=== PATIENT | male | born 1980 | race Asian ===

== ENCOUNTER 2019-06-24 13:29 | Emergency (ER) | payer SELFPAY ==
[~2019-06-24] VITALS: Ht 165.1 cm; Wt 67.0 kg
[2019-06-24 15:45] LABS: BASO % 0 % (0-3); EOS # 0.2 x10^3/uL (0.0-0.7); EOS % 2 % (0-3); HEMATOCRIT 46.6 % (39.0-53.0); HEMOGLOBIN 15.6 g/dL (13.0-17.5); LYMPH % 12 % (24-48); MEAN CORPUSCULAR HEMOGLOBIN 27 pg (25-35); MEAN CORPUSCULAR HGB CONC 34 g/dL (31-37); MEAN CORPUSCULAR VOLUME 82 fL (79-100); MONO # 0.7 x10^3/uL (0.0-1.1); MONO % 9 % (0-9); NEUT # 6.4 x10^3/uL (1.8-7.7); NEUT % 77 % (31-73); PLATELET COUNT 171 x10^3/uL (140-400); RED BLOOD COUNT 5.69 x10^6/uL (4.30-5.70); RED CELL DISTRIBUTION WIDTH 13.6 % (11.5-14.5); WHITE BLOOD COUNT 8.4 x10^3/uL (4.0-11.0)
[2019-06-24 15:47] LABS: BILIRUBIN,URINE NEGATIVE (NEG); CLARITY,URINE CLOUDY; COLOR,URINE YELLOW; NITRITE,URINE NEGATIVE (NEG); PROTEIN,URINE 100 mg/dL (NEG-TRACE); UROBILINOGEN,URINE 0.2 mg/dL (0.2 mg/dL)
[2019-06-24 15:55] LABS: CREATININE 1.4 mg/dL (0.7-1.3); GFR 56.4; POTASSIUM 3.7 mmol/L (3.5-5.1)
[2019-06-24 15:58] LABS: ALBUMIN 3.9 g/dL (3.4-5.0); BACTERIA,URINE FEW /HPF (0-FEW); RBC,URINE TNTC /HPF (0-2); SQUAMOUS EPITHELIAL CELL,UR FEW /LPF; TOTAL BILIRUBIN 0.3 mg/dL (0.2-1.0); TOTAL PROTEIN 7.9 g/dL (6.4-8.2); WBC,URINE TNTC /HPF (0-4)
[2019-06-24] MEDS ORDERED: IV NORMAL SALINE 1000ML BAG 1,000 ML IV ONE (16:00)
[2019-06-24] MEDS ORDERED: KETOROLAC 30 MG/ML VIAL. IV ONE (16:00)
[2019-06-24] MEDS ORDERED: KETOROLAC 15 MG/ML VIAL. ONE (16:21)
[2019-06-24] MEDS ORDERED: KETOROLAC 15 MG/ML VIAL. IV ONE (16:30)
--- NOTE | 2019-06-24 16:40 | RAD ---
Examination: CT of the abdomen pelvis without contrast HISTORY: History of right flank pain, hematuria COMPARISON: 07/23/2012 COMPARISON: None available TECHNIQUE: Axial CT images of the abdomen and pelvis performed without contrast. Coronal and sagittal reformats are performed. Exposure: One or more of the following individualized dose reduction techniques were utilized for this examination: 1. Automated exposure control 2. Adjustment of the mA and/or kV according to patient size 3. Use of iterative reconstruction technique FINDINGS: Mild bibasilar lung airspace opacities likely atelectasis or infiltrates. The evaluation of the solid organs is limited due to lack of IV contrast. The evaluation of bowel is limited due to lack of oral contrast. The visualized noncontrasted liver, spleen, adrenals grossly appears unremarkable. The gallbladder is mildly distended. The visualized tendon grossly appears unremarkable. The visualized pancreas grossly appears unremarkable. Small bowel is nondilated with feces and gas noted in the colon. Multiple intrarenal collecting system calculi identified in the bilateral kidneys. Mild bilateral hydronephrosis and hydroureter identified with moderate inflammatory fat stranding identified about the right ureter and mid and distal portion of the left ureter. There is a 6 mm calculus identified in the distal left ureter. There are cystic structures identified in the right kidney with the largest measuring 4.8 cm this could be cysts or focal nephronia or abscesses cannot be excluded. Urinary bladder is mildly distended. Mild fat stranding identified about the urinary bladder radiograph. Mild degenerative changes thoracolumbar spine. IMPRESSION: 1. Moderate inflammatory fat stranding identified about the bilateral ureters could be pyelonephritis with mild bilateral hydronephrosis and hydroureter identified. There is a 6 mm calculus identified in the distal left ureter. Multiple cystic structures identified in the right kidney with the largest measuring 4.8 cm could be cysts or cystic lesions or renal abscesses/focal nephronia. Correlate clinically. 2. Bilateral nephrolithiasis. 3. Mild fat stranding identified about the urinary bladder could be secondary to cystitis. Electronically signed by: Chad Rajput MD (06/24/2019 4:37 PM) [facility]
--- NOTE | 2019-06-24 16:51 | PHYS DOC ---
Past Medical History Past Medical History: Kidney Stone Past Surgical History: Other Additional Past Surgical Histo: cystoscopy with stent placement and removal, growths removed from neck Smoking: Cigarettes, Less than 1pk/day Alcohol Use: None Drug Use: None Adult General Chief Complaint Chief Complaint: ABDOMINAL PAIN HPI HPI Patient is a 39 year old male who presents to the ER with complaints of lower abdominal pain, R flank pain, and dark urine that has increased today. Pt states he has had intermittent flank pain for months. He reports hx of kidney stones. He denies any fever, dysuria, nausea, vomiting, diarrhea, hematuria, difficulty voiding, or abnormal penile discharge. Pt states he has had R testicle pain for months, he denies redness or warmth. Pt currently rates his pain a 10/10 on the pain scale, he denies any alleviating or exacerbating factors. Review of Systems Review of Systems Constitutional: Denies fever or chills [] Eyes: Denies redness, or eye pain [] HENT: Denies nasal congestion or sore throat [] Respiratory: Denies cough or shortness of breath [] Cardiovascular: No additional information not addressed in HPI [] GI: Denies nausea, vomiting, bloody stools or diarrhea [] : see HPI Musculoskeletal: Denies joint pain; see HPI reports R low back pain Integument: Denies rash Neurologic: Denies headache Complete systems were reviewed and found to be within normal limits, except as documented in this note. Current Medications Current Medications Current Medications Medications (Trade) Dose Ordered Sig/Nahomi Start Time Stop Time Status Last Admin Dose Admin Ceftriaxone Sodium (Rocephin) 1 gm 1X ONCE 06/24/19 17:00 06/24/19 17:06 DC 06/24/19 17:52 1 GM Ketorolac Tromethamine (Toradol 15mg Vial) 15 mg STK-MED ONCE 06/24/19 16:21 06/24/19 16:21 DC Ketorolac Tromethamine (Toradol 30mg Vial) 15 mg 1X ONCE 06/24/19 16:00 06/24/19 16:01 Cancel Sodium Chloride 1,000 ml @ 1,000 mls/hr 1X ONCE 06/24/19 16:00 06/24/19 16:59 DC 06/24/19 16:23 1,000 MLS/HR Allergies Allergies Allergies Coded Allergies Type Severity Reaction Last Updated Verified No Known Drug Allergies 09/23/14 No Physical Exam Physical Exam Constitutional: Well developed, well nourished, no acute distress, non-toxic appearance. [] HENT: Normocephalic, atraumatic, bilateral external ears normal, oropharynx moist, no oral exudates, nose normal. [] Eyes: PERRLA, EOMI, conjunctiva normal, no discharge. [] Neck: Normal range of motion, no stridor. [] Cardiovascular:Heart rate regular rhythm, no murmur [] Lungs & Thorax: Bilateral breath sounds clear to auscultation [] Abdomen: Bowel sounds normal, soft, no rebound tenderness, no masses, no pulsatile masses; bilateral lower abdominal TTP, no guarding. [] Skin: Warm, dry, no erythema, no rash. [] Back: No bony tenderness, R CVA tenderness. [] Extremities: No tenderness, no cyanosis, no clubbing, ROM intact, no edema. [] Neurologic: Alert and oriented X 3, no focal deficits noted. [] Psychologic: Affect normal, judgement normal, mood normal. [] Current Patient Data Vital Signs Vital Signs Date Time Temp Pulse Resp B/P (MAP) Pulse Ox O2 Delivery O2 Flow Rate FiO2 06/24/19 15:41 97.9 65 16 132/76 (94) 100 Room Air 97.9 Lab Values Laboratory Tests Test 06/24/19 15:35 White Blood Count 8.4 x10^3/uL (4.0-11.0) Red Blood Count 5.69 x10^6/uL (4.30-5.70) Hemoglobin 15.6 g/dL (13.0-17.5) Hematocrit 46.6 % (39.0-53.0) Mean Corpuscular Volume 82 fL (79-100) Mean Corpuscular Hemoglobin 27 pg (25-35) Mean Corpuscular Hemoglobin Concent 34 g/dL (31-37) Red Cell Distribution Width 13.6 % (11.5-14.5) Platelet Count 171 x10^3/uL (140-400) Neutrophils (%) (Auto) 77 % (31-73) H Lymphocytes (%) (Auto) 12 % (24-48) L Monocytes (%) (Auto) 9 % (0-9) Eosinophils (%) (Auto) 2 % (0-3) Basophils (%) (Auto) 0 % (0-3) Neutrophils # (Auto) 6.4 x10^3/uL (1.8-7.7) Lymphocytes # (Auto) 1.0 x10^3/uL (1.0-4.8) Monocytes # (Auto) 0.7 x10^3/uL (0.0-1.1) Eosinophils # (Auto) 0.2 x10^3/uL (0.0-0.7) Basophils # (Auto) 0.0 x10^3/uL (0.0-0.2) Urine Collection Type Unknown Urine Color Yellow Urine Clarity Cloudy Urine pH 6.0 Urine Specific Stanton 1.020 Urine Protein 100 mg/dL (NEG-TRACE) Urine Glucose (UA) Negative mg/dL (NEG) Urine Ketones (Stick) Negative mg/dL (NEG) Urine Blood Large (NEG) Urine Nitrite Negative (NEG) Urine Bilirubin Negative (NEG) Urine Urobilinogen Dipstick 0.2 mg/dL (0.2 mg/dL) Urine Leukocyte Esterase Large (NEG) Urine RBC Tntc /HPF (0-2) Urine WBC Tntc /HPF (0-4) Urine Squamous Epithelial Cells Few /LPF Urine Bacteria Few /HPF (0-FEW) Urine Mucus Slight /LPF Sodium Level 139 mmol/L (136-145) Potassium Level 3.7 mmol/L (3.5-5.1) Chloride Level 103 mmol/L (98-107) Carbon Dioxide Level 27 mmol/L (21-32) Anion Gap 9 (6-14) Blood Urea Nitrogen 22 mg/dL (8-26) Creatinine 1.4 mg/dL (0.7-1.3) H Estimated GFR (Cockcroft-Gault) 56.4 BUN/Creatinine Ratio 16 (6-20) Glucose Level 105 mg/dL (70-99) H Calcium Level 10.0 mg/dL (8.5-10.1) Total Bilirubin 0.3 mg/dL (0.2-1.0) Aspartate Amino Transferase (AST) 24 U/L (15-37) Alanine Aminotransferase (ALT) 38 U/L (16-63) Alkaline Phosphatase 102 U/L (46-116) Total Protein 7.9 g/dL (6.4-8.2) Albumin 3.9 g/dL (3.4-5.0) Albumin/Globulin Ratio 1.0 (1.0-1.7) Laboratory Tests 06/24/19 15:35 Laboratory Tests 06/24/19 15:35 EKG EKG [] Radiology/Procedures Radiology/Procedures PROCEDURE: CT ABDOMEN PELVIS WO CONTRAST Examination: CT of the abdomen pelvis without contrast HISTORY: History of right flank pain, hematuria COMPARISON: 07/23/2012 COMPARISON: None available TECHNIQUE: Axial CT images of the abdomen and pelvis performed without contrast. Coronal and sagittal reformats are performed. Exposure: One or more of the following individualized dose reduction techniques were utilized for this examination: 1. Automated exposure control 2. Adjustment of the mA and/or kV according to patient size 3. Use of iterative reconstruction technique FINDINGS: Mild bibasilar lung airspace opacities likely atelectasis or infiltrates. The evaluation of the solid organs is limited due to lack of IV contrast. The evaluation of bowel is limited due to lack of oral contrast. The visualized noncontrasted liver, spleen, adrenals grossly appears unremarkable. The gallbladder is mildly distended. The visualized tendon grossly appears unremarkable. The visualized pancreas grossly appears unremarkable. Small bowel is nondilated with feces and gas noted in the colon. Multiple intrarenal collecting system calculi identified in the bilateral kidneys. Mild bilateral hydronephrosis and hydroureter identified with moderate inflammatory fat stranding identified about the right ureter and mid and distal portion of the left ureter. There is a 6 mm calculus identified in the distal left ureter. There are cystic structures identified in the right kidney with the largest measuring 4.8 cm this could be cysts or focal nephronia or abscesses cannot be excluded. Urinary bladder is mildly distended. Mild fat stranding identified about the urinary bladder radiograph. Mild degenerative changes thoracolumbar spine. IMPRESSION: 1. Moderate inflammatory fat stranding identified about the bilateral ureters could be pyelonephritis with mild bilateral hydronephrosis and hydroureter identified. There is a 6 mm calculus identified in the distal left ureter. Multiple cystic structures identified in the right kidney with the largest measuring 4.8 cm could be cysts or cystic lesions or renal abscesses/focal nephronia. Correlate clinically. 2. Bilateral nephrolithiasis. 3. Mild fat stranding identified about the urinary bladder could be secondary to cystitis. [] Course & Med Decision Making Course & Med Decision Making Pertinent Labs and Imaging studies reviewed. (See chart for details) 1705- Using the [employer] cigar maker line I advised patient of CT results and pyelonephritis. I also informed pt that there is no urology coverage at this hospital. Patient needs to be admitted for IV antibiotics and urology services. PT states he would like to be transferred to , as he has had previous treatment at their facility for kidney stones. 1713- Spoke to Gene at the transfer center for will send over labs and imaging reports via fax as requested. 1739- Per Gene at accepting physician is Dr. Pepe Condon, will transfer pt via POV to ER and have disc of patient's imaging sent with patient. [] Dragon Disclaimer Dragon Disclaimer This electronic medical record was generated, in whole or in part, using a voice recognition dictation system. Departure Departure Impression: Primary Impression: Pyelonephritis Additional Impression: Left ureteral calculus Disposition: 05 TRANSFER OTHER Condition: IMPROVED Referrals: NO PCP (PCP) Patient Instructions: Kidney Stones, [id number], Pyelonephritis, Adult, [id number] Additional Instructions: Go straight to the ER at [facility], bring the disc and paperwork given to you. Do not eat or drink anything prior to arriving at . Problem Qualifiers JAMISON NOVA TEAM MEMBER Jun 24, 2019 16:51
[2019-06-24] MEDS ORDERED: cefTRIAXone IV Push 1 GM VIAL. IVP ONE (17:00)
--- NOTE | 2019-06-24 17:22 | RAD ---
Examination: TESTICULAR/SCROTUM History: Testicular pain for months Comparison/Correlation: None Findings: Scrotal ultrasound exam was performed. Right testicle measures 4.8 cm x 3.0 cm x 2.0 cm. Left testicle measures 4 cm x 3 cm x 2 cm. Normal testicular echotexture and contours are present. Small hydroceles are present. Epididymides are unremarkable bilaterally. Normal flow is evident bilaterally without findings of torsion or epididymoorchitis. No masses identified. No evidence of varicocele although Valsalva images are not provided. Impression: Small hydroceles. Otherwise unremarkable exam. Electronically signed by: Tanvir Crowder MD (06/24/2019 5:19 PM) [id number]
[2019-06-24 17:59] VITALS: BP 120/75
== END 2019-06-24 18:35 | disposition short-term general hospital (02) ==
LOC: ER 13:29
DX: N13.2 Hydronephrosis with renal and ureteral calculous obstruction (principal); N50.811 Right testicular pain; R10.31 Right lower quadrant pain; R10.32 Left lower quadrant pain; F17.210 Nicotine dependence, cigarettes, uncomplicated; Z87.442 Personal history of urinary calculi; Z98.890 Other specified postprocedural states
CPT/HCPCS: 36415; 74176; 76870; 80053; 81001; 85025; 87086; 96374; 96375; 99285; J0696; J1885; J7030

== ENCOUNTER 2019-07-09 20:06 | Emergency (ER) | payer SELFPAY ==
[~2019-07-09] VITALS: Ht 167.6 cm; Wt 67.0 kg
[2019-07-09 20:32] LABS: BILIRUBIN,URINE NEGATIVE (NEG); CLARITY,URINE TURBID; COLOR,URINE YELLOW; NITRITE,URINE NEGATIVE (NEG); PH,URINE 6.5; PROTEIN,URINE >=300 mg/dL (NEG-TRACE); UROBILINOGEN,URINE 0.2 mg/dL (0.2 mg/dL)
[2019-07-09 20:41] LABS: BACTERIA,URINE 0 /HPF (0-FEW); WBC,URINE >40 /HPF (0-4)
[2019-07-09] MEDS ORDERED: NAPR-683 PO (21:07)
[2019-07-09] MEDS ORDERED: CIPR500T94 PO (21:07)
--- NOTE | 2019-07-09 21:07 | PHYS DOC ---
Past Medical History Past Medical History: Kidney Stone Past Surgical History: Other Additional Past Surgical Histo: cystoscopy with stent placement and removal, growths removed from neck Smoking Status: Current Every Day Smoker Alcohol Use: None Drug Use: None Adult General Chief Complaint Chief Complaint: ABDOMINAL PAIN HPI HPI 39-year-old male presents with a chief complaint of right sided flank pain and abdominal pain. Patient states symptoms of been ongoing on and off for 6 months. Patient denies any associated nausea vomiting or diarrhea. 2 weeks ago patient was evaluated for left-sided abdominal and flank pain was found to have a 6 mm stone with associated urinary tract infection. Patient was transferred to [facility]. Exam patient is in no acute distress. Patient abdomen is soft without rebound or guarding. Patient's urine positive for WBCs and leukocyte esterase. He without any associated fevers or chills. Review of Systems Review of Systems Constitutional: Denies fever or chills [] Eyes: Denies change in visual acuity, redness, or eye pain [] HENT: Denies nasal congestion or sore throat [] Respiratory: Denies cough or shortness of breath [] Cardiovascular: No additional information not addressed in HPI [] GI: Positive abdominal pain no nausea no vomiting no diarrhea : Denies dysuria or hematuria [flank pain Musculoskeletal: Denies back pain or joint pain [] Integument: Denies rash or skin lesions [] Neurologic: Denies headache, focal weakness or sensory changes [] Endocrine: Denies polyuria or polydipsia [] All other systems were reviewed and found to be within normal limits, except as documented in this note. Allergies Allergies Allergies Coded Allergies Type Severity Reaction Last Updated Verified No Known Drug Allergies 09/23/14 No Physical Exam Physical Exam Constitutional: Well developed, well nourished, no acute distress, non-toxic appearance. [] HENT: Normocephalic, atraumatic, bilateral external ears normal, oropharynx moist, no oral exudates, nose normal. [] Eyes: PERRLA, EOMI, conjunctiva normal, no discharge. [] Neck: Normal range of motion, no tenderness, supple, no stridor. [] Cardiovascular:Heart rate regular rhythm, no murmur [] Lungs & Thorax: Bilateral breath sounds clear to auscultation [] Abdomen: Bowel sounds normal, soft, no tenderness, no masses, no pulsatile masses. [] Skin: Warm, dry, no erythema, no rash. [] Back: No tenderness, no CVA tenderness. [] Extremities: No tenderness, no cyanosis, no clubbing, ROM intact, no edema. [] Neurologic: Alert and oriented X 3, normal motor function, normal sensory function, no focal deficits noted. [] Psychologic: Affect normal, judgement normal, mood normal. [] Current Patient Data Lab Values Laboratory Tests Test 07/09/19 20:13 Urine Collection Type Unknown Urine Color Yellow Urine Clarity Turbid Urine pH 6.5 Urine Specific Boring 1.020 Urine Protein >=300 mg/dL (NEG-TRACE) Urine Glucose (UA) Negative mg/dL (NEG) Urine Ketones (Stick) Negative mg/dL (NEG) Urine Blood Small (NEG) Urine Nitrite Negative (NEG) Urine Bilirubin Negative (NEG) Urine Urobilinogen Dipstick 0.2 mg/dL (0.2 mg/dL) Urine Leukocyte Esterase Small (NEG) Urine RBC 11-20 /HPF (0-2) Urine WBC >40 /HPF (0-4) Urine Bacteria 0 /HPF (0-FEW) Urine Mucus Slight /LPF EKG EKG [] Radiology/Procedures Radiology/Procedures [] Course & Med Decision Making Course & Med Decision Making Pertinent Labs and Imaging studies reviewed. (See chart for details) []Patient's urine consistent with urinary tract infection. Patient states symptoms been ongoing 6 months on and off. CT imaging reviewed from 2 weeks ago shows no kidney stone and right kidney. Any findings on right kidney- cyst. She was discharged home with Cipro and naproxen and Ultram. Dragon Disclaimer Dragon Disclaimer This electronic medical record was generated, in whole or in part, using a voice recognition dictation system. Departure Departure Impression: Primary Impression: UTI (lower urinary tract infection) Disposition: HOME, SELF-CARE Condition: STABLE Referrals: NO PCP (PCP) Patient Instructions: Urinary Tract Infection Scripts Naproxen (NAPROSYN) 500 Mg Tablet 1 TAB PO BID for pain for 30 Days, #20 TAB 0 Refills Prov: CRUZ TURPIN DO 07/09/19 Ciprofloxacin Hcl (CIPRO) 500 Mg Tablet 1 TAB PO BID for 7 Days, #14 TAB 0 Refills Prov: CRUZ TURPIN DO 07/09/19 CRUZ UTRPIN DO Jul 09, 2019 21:07
[2019-07-09 21:45] VITALS: BP 124/75
== END 2019-07-09 21:45 | disposition home or self-care (01) ==
LOC: ER 20:06
DX: N39.0 Urinary tract infection, site not specified (principal); F17.200 Nicotine dependence, unspecified, uncomplicated; Z87.442 Personal history of urinary calculi; Z98.890 Other specified postprocedural states
CPT/HCPCS: 81001; 87086; 99283

== ENCOUNTER → 2019-10-02 | Outpatient (CLI) | payer MEDICAID ==
[~2019-10-02] MED LIST: CIPR500T94 PO; NAPR-683 PO
--- NOTE | 2019-10-02 16:41 | RAD ---
EXAM: PA and Lateral Views of the Chest DATE: 10/02/2019 4:10 PM INDICATION: TB COMPARISON: No Prior FINDINGS: The heart is not enlarged. Mediastinal and hilar contours are normal. Calcified granulomas left midlung. No lobar consolidation. No pleural effusion or pneumothorax. IMPRESSION: Calcified granuloma left midlung. No lobar consolidation. Electronically signed by: Aditya Araiza MD (10/02/2019 4:38 PM) [facility]
== END | disposition home or self-care (01) ==
LOC: RAD 15:09
PROVIDERS: ATTEND Family Medicine
DX: J84.10 Pulmonary fibrosis, unspecified (principal); A15.9 Respiratory tuberculosis unspecified
CPT/HCPCS: 71046

== ENCOUNTER → 2019-11-20 | Outpatient (CLI) | payer OTHER, MEDICAID ==
--- NOTE | 2019-11-20 13:11 | KCIC ---
Single view of the chest. 11/20/2019 12:00 AM Indication: Reason: FOLLOW UP TB / Spl. Instructions: / History: Comparison: Chest radiograph chest radiograph October 02, 2019 Findings: There is no focal consolidation. There is no pleural effusion or pneumothorax. The cardiomediastinal silhouette and pulmonary vasculature are within normal limits. No acute osseous abnormalities are seen. Impression: No evidence of acute cardiopulmonary process. Electronically signed by: Reji Magaña MD (11/20/2019 1:08 PM) [id number]
== END | disposition home or self-care (01) ==
LOC: KCIC 11:08
PROVIDERS: ATTEND Family Medicine
DX: Z09 Encounter for follow-up examination after completed treatment for conditions other than malignant neoplasm (principal); Z86.11 Personal history of tuberculosis
CPT/HCPCS: 71045